=== PATIENT | female | born 1995 | race Caucasian/White ===

== ENCOUNTER 2024-08-11 02:01 | Observation (INO) | payer BC ==
[2024-08-11 02:24] VITALS: BMI 28.6
[2024-08-11] MEDS ORDERED: hydrALAZINE 20 MG/ML VIAL SLOW IVP PRN ×2 (02:56→10:14)
[2024-08-11] MEDS ORDERED: Ondansetron HCl/PF 8 MG in Sodium Chloride 0.9% 50 ML IVPB SCH (03:00)
[2024-08-11] MEDS: Famotidine/PF 20 mg/2ml Vial SLOW IVP SCH ×2 (03:30→04:00)
[2024-08-11] MEDS: Ondansetron PF 4 MG/2 ML Vial IVP SCH ×2 (03:38→04:00)
[2024-08-11] MEDS ORDERED: Ondansetron PF 4 MG/2 ML Vial IVP PRN (07:00)
[2024-08-11] MEDS ORDERED: Ondansetron ODT 4 MG TAB PO PRN (08:36)
[2024-08-11] MEDS: Ondansetron ODT 4 MG TAB PO PRN (09:22)
[2024-08-11 10:03] LABS: #Basophils 0.02 10x3/uL (0.0-0.2); #Monocytes 0.61 10x3/uL (0.0-1.1); #Neutrophils 8.73 10x3/uL (1.5-8.4); %Basophils 0.2 % (0.0-2.0); %Lymphocytes 7.6 % (18.0-47.0); %Neutrophils 85.6 % (40.0-75.0); Hematocrit 31.8 % (34.9-44.5); Hemoglobin 10.9 g/dL (12.0-15.5); Mean Corpuscular HGB CONC 34.3 g/dL (32.0-36.0); Mean Corpuscular Hemoglobin 31.9 pg (27.0-33.0); Mean Platelet Volume 9.6 fL (7.4-10.4); Platelet Count 193 10x3/uL (150-450); RBC Distribution Width 13.1 % (11.5-14.5); Red Blood Cell (RBC) Count 3.42 10x6/uL (3.90-5.03); White Blood Cell (WBC) Count 10.2 10x3/uL (3.5-10.5)
[2024-08-11 10:21] LABS: ALT (SGPT) 11 U/L (8-55); AST (SGOT) 11 U/L (5-34); Albumin 2.6 g/dL (3.5-5.0); Alkaline Phosphatase 69 U/L (40-110); Anion Gap 13 mmol/L (10-20); BUN (Urea Nitrogen) 9 mg/dL (7.0-18.7); Bilirubin, Total 0.5 mg/dL (0.2-1.2); Calc. Creatinine Clearance 179 mL/min (70-130); Calcium 8.5 mg/dL (7.8-10.44); Carbon Dioxide 23 mmol/L (22-29); Chloride 105 mmol/L (98-107); Estimated GFR 127; Globulin 3.2 g/dL (2.4-3.5); Glucose 91 mg/dL (70-105); Lipase 24 U/L (8-78); Potassium 3.6 mmol/L (3.5-5.1); Protein, Total 5.8 g/dL (6.0-8.3); Sodium 137 mmol/L (136-145)
[2024-08-11] MEDS ORDERED: diphenhydrAMINE 25 MG CAP PO PRN (10:21)
[2024-08-11] MEDS ORDERED: Methocarbamol 500 MG TAB PO PRN (10:21)
[2024-08-11] MEDS ORDERED: Acetaminophen 325 MG TAB PO PRN (10:34)
[2024-08-11] MEDS ORDERED: Azithromycin 250 MG TAB PO SCH (11:00)
[2024-08-11] MEDS ORDERED: Methocarbamol 500 MG TAB PO SCH (11:00)
[2024-08-11] MEDS ORDERED: Methocarbamol 1 GM (10 mL) VIAL IM SCH (11:30)
[2024-08-11] MEDS ORDERED: Metoclopramide HCl 10 MG TAB PO SCH (11:30)
[2024-08-11] MEDS ORDERED: Acetaminophen 650 MG/20.3 ML UDCUP PO PRN ×2 (12:17→18:30)
[2024-08-11] MEDS: Methocarbamol 500 MG TAB PO SCH (12:29)
[2024-08-11] MEDS: Acetaminophen 650 MG/20.3 ML UDCUP PO SCH (12:30)
[2024-08-11] MEDS: diphenhydrAMINE 50 MG/ML VIAL IVP SCH (12:34)
[2024-08-11] MEDS: Lactated Ringer's 1,000 ML IV SCH (12:34)
[2024-08-11] MEDS: Metoclopramide HCl 10 MG (2 mL) VIAL IVP SCH (12:34)
[2024-08-11] MEDS: Azithromycin 500 MG in Sodium Chloride 0.9% 250 ML 250 ML IVPB SCH (12:35)
[2024-08-11] MEDS: D5 LR w/20 mEq KCL 1,000 ML IV SCH (12:36)
[2024-08-11] MEDS: POTASSIUM CHLORIDE IV SCH (12:37)
[2024-08-11] MEDS: ADMIXTURE FEE IV SCH (12:37)
[2024-08-11] MEDS: [UNRECOGNIZED DRUG - OTHER] IV SCH (12:37)
[2024-08-11] MEDS: Potassium Chloride 40 MEQ in Dextrose 5%-Lactated Ringers 1,000 ML IV SCH (12:38)
[2024-08-11] MEDS: Acetaminophen 500 MG TAB PO SCH (12:38)
[2024-08-11] MEDS: Ondansetron PF 4 MG/2 ML Vial IVP PRN (14:49)
[2024-08-11] MEDS: Metoclopramide HCl 10 MG (2 mL) VIAL IVP PRN (15:00)
[2024-08-11] MEDS: Ondansetron ODT 4 MG TAB PO SCH (15:00)
[2024-08-11 15:35] LABS: Bilirubin Neg (Negative); Blood, Urine Negative (Negative); Clarity Clear (Clear); Glucose, Urine (Dipstick) Normal (Negative); Ketone, Urine 150 mg/dL (Negative); Leukocyte Negative (Negative); Nitrite Negative (Negative); Protein, Urine (Dipstick) Negative (Neg-Trace); Specific Gravity, Urine 1.005 (1.005-1.030); Urobilinogen Normal mg/dL (Less than 2)
[2024-08-11 16:05] LABS: Bacteria/HPF 1+ HPF (None Seen); CAUTI Indications for Culture Pregnancy; Mucous/LPF 3+ LPF (<2+); RBC/HPF 0-3 HPF (0-3); Squamous Epithelial 0-3 HPF (0-3); WBC/HPF 0-3 HPF (0-3)
[2024-08-11 16:07] LABS: Urine Culture Reflex Yes Yes
[2024-08-11] MEDS ORDERED: Methocarbamol 1 GM (10 mL) VIAL IM PRN (19:30)
[2024-08-11] MEDS: Famotidine 20 MG TAB PO SCH (20:00)
[2024-08-11 20:29] VITALS: BP 99/66; TEMP 98
[2024-08-11] MEDS ORDERED: Famotidine/PF 20 mg/2ml Vial SLOW IVP SCH (21:00)
[2024-08-11] MEDS ORDERED: Famotidine 20 MG TAB PO SCH (21:00)
[2024-08-12] MEDS ORDERED: Azithromycin 250 MG TAB PO SCH (09:00)
[2024-08-12] MEDS ORDERED: Famotidine/PF 20 mg/2ml Vial SLOW IVP SCH (09:00)
[2024-08-12] MEDS ORDERED: Azithromycin 250 MG TAB PO ONE (10:27)
== END 2024-08-11 20:00 | disposition home or self-care (01) ==
LOC: CSHLD/OP 02:01 → CSHANTE 10:35
PROVIDERS: ADMIT Family Medicine; ATTEND Family Medicine
DX: O99.612 Diseases of the digestive system complicating pregnancy, second trimester (principal); K52.9 Noninfective gastroenteritis and colitis, unspecified; O21.2 Late vomiting of pregnancy; Z79.899 Other long term (current) drug therapy; Z3A.22 22 weeks gestation of pregnancy
CPT/HCPCS: 36415; 80053; 81001; 83690; 85025; 87077; 87086; 96360; 96374; 96375; 99285; G0378; J0456; J2405; J2765; J3480; J3490; J7050; J7120; Q0162

== ENCOUNTER 2024-10-01 15:52 | Day surgery (SDC) | payer BC ==
[2024-10-01 16:20] VITALS: BMI 29.9
[2024-10-01] MEDS: diphenhydrAMINE 50 MG CAP PO SCH (17:31)
[2024-10-01 18:19] LABS: Anion Gap 11 mmol/L (10-20); BUN (Urea Nitrogen) 6 mg/dL (7.0-18.7); Calc. Creatinine Clearance 168 mL/min (70-130); Carbon Dioxide 22 mmol/L (22-29); Chloride 107 mmol/L (98-107); Estimated GFR 124; Glucose 90 mg/dL (70-105); Potassium 4.1 mmol/L (3.5-5.1); Sodium 136 mmol/L (136-145)
[2024-10-01 18:41] LABS: ALT (SGPT) 10 U/L (8-55); AST (SGOT) 13 U/L (5-34); Albumin 2.8 g/dL (3.5-5.0); Alkaline Phosphatase 100 U/L (40-110); Bilirubin, Direct 0.1 mg/dL (0.1-0.3); Bilirubin, Total 0.2 mg/dL (0.2-1.2); CK (CPK) 29 U/L (29-168); Protein, Total 6.7 g/dL (6.0-8.3)
[2024-10-01 19:08] LABS: #Basophils 0.04 10x3/uL (0.0-0.2); #Eosinophils 0.23 10x3/uL (0.0-0.5); #Monocytes 1.04 10x3/uL (0.0-1.1); #Neutrophils 10.42 10x3/uL (1.5-8.4); %Basophils 0.3 % (0.0-2.0); %Eosinophils 1.6 % (0.0-6.0); %Lymphocytes 17.7 % (18.0-47.0); %Monocytes 7.3 % (0.0-10.0); %Neutrophils 72.7 % (40.0-75.0); Hematocrit 36.4 % (34.9-44.5); Hemoglobin 12.7 g/dL (12.0-15.5); Mean Corpuscular HGB CONC 34.9 g/dL (32.0-36.0); Mean Corpuscular Hemoglobin 31.9 pg (27.0-33.0); Mean Corpuscular Volume 91.5 fL (81.6-98.3); Mean Platelet Volume 9.7 fL (7.4-10.4); Platelet Count 222 10x3/uL (150-450); RBC Distribution Width 12.3 % (11.5-14.5); Red Blood Cell (RBC) Count 3.98 10x6/uL (3.90-5.03); White Blood Cell (WBC) Count 14.3 10x3/uL (3.5-10.5)
== END 2024-10-01 20:15 | disposition home or self-care (01) ==
LOC: CSHLD/OP 15:52
PROVIDERS: ATTEND Obstetrics & Gynecology
DX: O26.899 Other specified pregnancy related conditions, unspecified trimester (principal); L29.9 Pruritus, unspecified; R19.7 Diarrhea, unspecified; R51.9 Headache, unspecified; R53.1 Weakness; O99.019 Anemia complicating pregnancy, unspecified trimester; D50.9 Iron deficiency anemia, unspecified; O47.9 False labor, unspecified; Z3A.00 Weeks of gestation of pregnancy not specified; Z79.899 Other long term (current) drug therapy
CPT/HCPCS: 36415; 80048; 80076; 82550; 85025; 96365; 96366; 99212; 99283; G0463; J1756; J7050

== ENCOUNTER 2024-11-08 11:16 | Emergency (ER) | payer BC ==
[2024-11-08] MEDS ORDERED: Racepinephrine 2.25% 0.5 ML NEB ONE (11:33)
[2024-11-08] MEDS ORDERED: Dexamethasone 10 MG/ML VIAL ONE (11:38)
[2024-11-08] MEDS ORDERED: Acetaminophen 325 MG TAB ONE (15:13)
[2024-11-08 17:22] LABS: Influenza A by NAA Not Detected (NotDetected); Influenza B by NAA Not Detected (NotDetected); RSV by NAA DETECTED (NotDetected); SARS-CoV-2 NAA Rapid Test Not Detected (NotDetected)
== END 2024-11-08 17:56 | disposition home or self-care (01) ==
LOC: CSHERS 11:16
DX: O98.513 Other viral diseases complicating pregnancy, third trimester (principal); B33.8 Other specified viral diseases; B97.4 Respiratory syncytial virus as the cause of diseases classified elsewhere; Z3A.35 35 weeks gestation of pregnancy; Z55.6 Problems related to health literacy
CPT/HCPCS: 0241U; 71045; 87428; 93005; 94640; J1100

== ENCOUNTER 2024-11-19 11:41 | Day surgery (SDC) | payer BC ==
[2024-11-19] MEDS: Acetaminophen 500 MG TAB PO SCH (13:03)
[2024-11-19 13:43] LABS: Bilirubin Neg (Negative); Blood, Urine Negative (Negative); Clarity Clear (Clear); Glucose, Urine (Dipstick) Normal (Negative); Ketone, Urine Negative (Negative); Leukocyte 500 (Negative); Nitrite Negative (Negative); Protein, Urine (Dipstick) 30 mg/dl (Neg-Trace); Specific Gravity, Urine 1.015 (1.005-1.030); pH, Urine 6.5 (5.0-9.0)
[2024-11-19 13:57] LABS: Creatinine, Urine 105.18 mg/dL (47-110)
[2024-11-19 14:10] LABS: ALT (SGPT) 13 U/L (8-55); AST (SGOT) 14 U/L (5-34); Albumin 2.3 g/dL (3.5-5.0); Alkaline Phosphatase 204 U/L (40-110); Anion Gap 14 mmol/L (10-20); BUN (Urea Nitrogen) 6 mg/dL (7.0-18.7); Bilirubin, Total 0.3 mg/dL (0.2-1.2); Calc. Creatinine Clearance 0 mL/min (70-130); Calcium 8.9 mg/dL (7.8-10.44); Carbon Dioxide 23 mmol/L (22-29); Chloride 106 mmol/L (98-107); Estimated GFR 126; Globulin 4.2 g/dL (2.4-3.5); Glucose 93 mg/dL (70-105); Potassium 3.9 mmol/L (3.5-5.1); Protein, Total 6.5 g/dL (6.0-8.3); Sodium 139 mmol/L (136-145)
[2024-11-19 14:13] LABS: #Basophils 0.03 10x3/uL (0.0-0.2); #Eosinophils 0.05 10x3/uL (0.0-0.5); #Monocytes 0.75 10x3/uL (0.0-1.1); #Neutrophils 9.97 10x3/uL (1.5-8.4); %Basophils 0.2 % (0.0-2.0); %Eosinophils 0.4 % (0.0-6.0); %Lymphocytes 15.2 % (18.0-47.0); %Monocytes 5.9 % (0.0-10.0); %Neutrophils 77.9 % (40.0-75.0); Hematocrit 36.9 % (34.9-44.5); Hemoglobin 12.3 g/dL (12.0-15.5); Mean Corpuscular HGB CONC 33.3 g/dL (32.0-36.0); Mean Corpuscular Hemoglobin 30.8 pg (27.0-33.0); Mean Corpuscular Volume 92.5 fL (81.6-98.3); Mean Platelet Volume 9.4 fL (7.4-10.4); Platelet Count 255 10x3/uL (150-450); RBC Distribution Width 13.7 % (11.5-14.5); Red Blood Cell (RBC) Count 3.99 10x6/uL (3.90-5.03); White Blood Cell (WBC) Count 12.8 10x3/uL (3.5-10.5)
[2024-11-19 14:16] LABS: Bacteria/HPF 2+ HPF (None Seen); CAUTI Indications for Culture Pregnancy; RBC/HPF None Seen HPF (0-3)
[2024-11-19 14:18] LABS: Urine Culture Reflex Yes Yes
[2024-11-19] MEDS: Metoclopramide HCl 10 MG (2 mL) VIAL IVP PRN (14:44)
[2024-11-19] MEDS: diphenhydrAMINE 50 MG/ML VIAL IVP PRN (14:44)
[2024-11-19] MEDS: Cephalexin 500 MG CAP PO SCH (14:51)
[2024-11-19] MEDS: Metoclopramide HCl 10 MG (2 mL) VIAL IVP SCH (15:23)
[2024-11-19] MEDS ORDERED: Acetaminophen 500 MG TAB PO PRN (18:45)
== END 2024-11-19 16:46 | disposition home or self-care (01) ==
LOC: CSHLD/OP 11:41
PROVIDERS: ATTEND Obstetrics & Gynecology
DX: O99.891 Other specified diseases and conditions complicating pregnancy (principal); R03.0 Elevated blood-pressure reading, without diagnosis of hypertension; O23.43 Unspecified infection of urinary tract in pregnancy, third trimester; B95.1 Streptococcus, group B, as the cause of diseases classified elsewhere; O23.593 Infection of other part of genital tract in pregnancy, third trimester; N89.8 Other specified noninflammatory disorders of vagina; B96.89 Other specified bacterial agents as the cause of diseases classified elsewhere; O99.345 Other mental disorders complicating the puerperium; F53.1 Puerperal psychosis; Z3A.36 36 weeks gestation of pregnancy; Z79.899 Other long term (current) drug therapy
CPT/HCPCS: 36415; 80053; 81001; 82570; 84156; 85025; 87077; 87086; 87480; 87510; 87660; 99285; J1200; J2765

== ENCOUNTER 2024-11-26 19:10 | Day surgery (SDC) | payer BC ==
[2024-11-26] MEDS ORDERED: hydrALAZINE 20 MG/ML VIAL SLOW IVP PRN (20:02)
[2024-11-26 20:46] VITALS: BMI 31.2
[2024-11-26 20:47] LABS: Fetal Membranes Rupture No Membranes Rupture (No Rupture)
== END 2024-11-26 23:15 | disposition home or self-care (01) ==
LOC: CSHLD/OP 19:10
PROVIDERS: ATTEND Obstetrics & Gynecology
DX: O47.1 False labor at or after 37 completed weeks of gestation (principal); O99.013 Anemia complicating pregnancy, third trimester; Z3A.37 37 weeks gestation of pregnancy; Z79.899 Other long term (current) drug therapy
CPT/HCPCS: 84112; 99283

== ENCOUNTER 2024-12-06 17:39 | Day surgery (SDC) | payer BC ==
[2024-12-06 17:54] VITALS: BMI 30.9
== END 2024-12-06 20:10 | disposition home or self-care (01) ==
LOC: CSHLD/OP 17:39
PROVIDERS: ATTEND Obstetrics & Gynecology
DX: O47.1 False labor at or after 37 completed weeks of gestation (principal); O99.013 Anemia complicating pregnancy, third trimester; Z3A.38 38 weeks gestation of pregnancy; Z79.899 Other long term (current) drug therapy
CPT/HCPCS: 99283

== ENCOUNTER 2024-12-07 05:34 | Inpatient (IN) | payer BC ==
[2024-12-07] MEDS ORDERED: fentaNYL 50 mcg/mL 1 mL Vial SLOW IVP PRN (05:53)
[2024-12-07] MEDS ORDERED: Milk Of Magnesia 30 ML UDCUP PO PRN ×2 (05:53→05:55)
[2024-12-07] MEDS ORDERED: Diphenoxylate HCl/Atropine Tablet PO PRN (05:53)
[2024-12-07] MEDS ORDERED: Ondansetron PF 4 MG/2 ML Vial IVP PRN ×3 (05:53→05:55)
[2024-12-07] MEDS ORDERED: Methylergonovine 0.2 MG/ML VIAL IM PRN ×3 (05:53→05:55)
[2024-12-07] MEDS ORDERED: Lidocaine 1% (PF) 30 ML VIAL SC PRN (05:53)
[2024-12-07] MEDS ORDERED: Ibuprofen 800 MG TAB PO PRN (05:53)
[2024-12-07] MEDS ORDERED: hydrALAZINE 20 MG/ML VIAL SLOW IVP PRN ×4 (05:53→05:55)
[2024-12-07] MEDS ORDERED: Tranexamic Acid 1,000 MG/10 ML VIAL IVP PRN (05:53)
[2024-12-07] MEDS ORDERED: Bisacodyl 10 MG SUPP PR PRN ×2 (05:53→05:55)
[2024-12-07] MEDS ORDERED: Carboprost 250 MCG/ML AMP IM PRN (05:53)
[2024-12-07] MEDS ORDERED: Misoprostol 200 MCG TAB VAG PRN ×2 (05:53→05:55)
[2024-12-07] MEDS ORDERED: Misoprostol 200 MCG TAB PR PRN ×2 (05:53→05:55)
[2024-12-07] MEDS ORDERED: Promethazine HCl 25 MG/ML VIAL IM PRN ×2 (05:53→05:55)
[2024-12-07] MEDS ORDERED: HYDROcodone/Acetaminophen 5/325 mg Tablet PO PRN (05:55)
[2024-12-07 05:58] VITALS: BMI 31.9
[2024-12-07] MEDS ORDERED: Oxytocin 30 units/NS 500 ML 500 ML IV SCH ×3 (06:00)
[2024-12-07] MEDS: Ketorolac Tromethamine 30 MG (1 mL) VIAL IVP PRN (06:16)
[2024-12-07] MEDS: Acetaminophen 500 MG TAB PO PRN (07:50)
[2024-12-07] MEDS ORDERED: Docusate 100 MG CAP PO SCH (09:00)
[2024-12-07 10:19] LABS: Hematocrit 36.9 % (34.9-44.5); Hemoglobin 12.2 g/dL (12.0-15.5); Mean Corpuscular HGB CONC 33.1 g/dL (32.0-36.0); Mean Corpuscular Volume 90.9 fL (81.6-98.3); Mean Platelet Volume 9.7 fL (7.4-10.4); Platelet Count 210 10x3/uL (150-450); RBC Distribution Width 13.6 % (11.5-14.5); Red Blood Cell (RBC) Count 4.06 10x6/uL (3.90-5.03); White Blood Cell (WBC) Count 19.72 10x3/uL (3.5-10.5)
[2024-12-07 10:53] LABS: HBsAg Index 0.24 S/CO (0-0.99); Hep B Surf Ag - L&D Non-Reactive S/CO (NonReactive)
[2024-12-07 10:54] LABS: Syphilis Antibody Nonreactive (Nonreactive); Syphilis Antibody Index 0.07 S/CO (<1.00 Non-Reactive)
[2024-12-07] MEDS: Ferrous Sulfate 325 MG TAB PO SCH (11:16)
[2024-12-07] MEDS: Docusate 100 MG CAP PO SCH (11:17)
[2024-12-07] MEDS: Prenatal Vitamin 1 TAB PO SCH (11:17)
[2024-12-07] MEDS: Ibuprofen 800 MG TAB PO SCH (14:58)
[2024-12-08] MEDS: Boostrix 0.5 ML (Tdap) VIAL (>/=7 yrs of age) IM ONE (07:40)
[2024-12-08] MEDS: HYDROcodone/Acetaminophen 5/325 mg Tablet PO PRN (09:49)
[2024-12-09] MEDS: Benzocaine-Menthol 82.5 ML CAN TOP PRN (05:05)
[2024-12-09 08:00] VITALS: BP 90/60; TEMP 98.4
[2024-12-12] MEDS ORDERED: Ibuprofen 800 MG TAB PO SCH (14:00)
== END 2024-12-09 11:10 | disposition home or self-care (01) | DRG 807 ==
LOC: CSHLD/OP 05:34 → CSHLD 06:15 → CSHPP 08:20
PROVIDERS: ADMIT Obstetrics & Gynecology; ATTEND Obstetrics & Gynecology
PROC: 10E0XZZ Delivery of Products of Conception, External Approach (ICD-10-PCS; principal; 2024-12-07)
DX: O26.893 Other specified pregnancy related conditions, third trimester (principal); Z37.0 Single live birth; Z67.11 Type A blood, Rh negative; Z3A.39 39 weeks gestation of pregnancy
CPT/HCPCS: 36415; 85027; 86780; 86850; 86900; 86901; 87340; 99285; J1885